=== PATIENT | female | born 1940 | race Caucasian/White ===

== ENCOUNTER → 2017-02-12 | Outpatient (CLI) | payer MEDICARE, BC ==
[~2017-02-12] MED LIST: AMLODIPINE BESYL5 MG PO; ASPIRIN81 M2 PO; BISOPROLOL-HCT1 EACH PO; CYCLOBENZAPRINE5 MG PO; DULOXETINE HCL60 MG PO; ESTRACE0.5 MG PO; HYDROCODON-ACE1 EAC5 PO; NEURONTIN PO; POTASSIUM CHLO10 ME1; PRAVASTATIN SOD40 MG PO
--- NOTE | ~2017-02-12 | CT127 ---
[facility] A Service of [facility] & [facility] RADIOLOGY TEXT RESULTS PATIENT: LORENE PAZ [facility] : [facility] UNIT #: [id number] AGE: [address]: Navin Gabriel MD SEX: F ORDER DR: [id number] [facility] [address] [place], [place] [address] [id number] O MR#: [id number] Acc #: [id number] NAME: LORENE PAZ : 1940 SEX: F STUDY DATE/TIME: 02/12/2017 14:58 UNIT: [facility] ROOM: STUDY DESCRIPTION: CT Upper Ext Lt Wo Cont Attending Physician: Navin Gabriel M.D. Referring Physician: Navin Gabriel M.D. Ordering Physician: Navin Gabriel M.D. Primary Care Physician: Mildred Cotton M.D. MEDICAL IMAGING REPORT This report is preliminary unless electronic signature is present EXAM CT left shoulder. HISTORY Left shoulder pain for 5 years. Preoperative evaluation for left shoulder surgery. History of osteoarthritis left shoulder. COMPARISON Left shoulder films 06/20/16. FINDINGS Thin section axial images performed through the left shoulder without contrast. Multiplanar reconstructed images reviewed at a workstation. This CT exam was performed with one or more of the following radiation dose reduction techniques: automatic exposure control, adjustment of mA and/or kV according to patient size, and iterative reconstruction. Examination demonstrates moderately advanced glenohumeral joint osteoarthritis with extensive full-thickness cartilage loss off the glenoid and humeral head. There is a moderate amount of subchondral cystic change and sclerosis along the humeral head and a prominent inferiorly-directed humeral head osteophyte. A small amount of subchondral cystic change noted along the glenoid. No joint effusion. There is approximately 13 degrees of glenoid retroversion. AC joint unremarkable. Mild lateral downsloping of the acromion. Rotator cuff musculature appears intact. No gross evidence of rotator cuff tear though non-arthrographic CT limited. Deltoid musculature appears normal. The visualized left thorax unremarkable. 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 STS. [facility] A Service of [facility] & [facility] RADIOLOGY TEXT RESULTS PATIENT: LORENE PAZ [facility] UNIT #: [id number] AGE: [address]: Navin Gabriel MD SEX: F ORDER DR: Dictated by... Aubrie Faye M.D. THIS IS AN ELECTRONICALLY VERIFIED REPORT Aubrie Faye M.D. at 02/14/2017 5:11 PM Ramos TD: 02/12/2017 22:53 JOB #: [id number] MEDICAL IMAGING REPORT Page 1 of 1 COPY
[2017-02-12 13:52] LABS: HEMATOCRIT 36.1 % (35.0-45.0); HEMOGLOBIN 11.7 gm/dL (12.0-16.0); MEAN CELL VOLUME 83.1 FL (83-96); MEAN CORPUSCULAR HEMOGLOBIN 26.9 PG (28-34); MEAN CORPUSCULAR HGB CONC 32.4 g/dL (30-36); MEAN PLATELET VOLUME 8.1 FL (6.5-11.5); RED BLOOD COUNT 4.34 X10e (3.90-5.30); RED CELL DISTRIBUTION WIDTH 14.1 % (11.0-15.5); WHITE BLOOD COUNT 5.1 X10e3 (4.0-10.5)
[2017-02-12 14:46] LABS: URINE APPEARANCE CLEAR; URINE BILIRUBIN NEG (NEG); URINE BLOOD NEG (NEG); URINE COLOR YELLOW; URINE GLUCOSE NEG (NEG); URINE KETONE NEG (NEG); URINE LEUKOCYTE ESTERASE NEG (NEG); URINE NITRATE NEG (NEG); URINE PROTEIN NEG (NEG); URINE SPECIFIC GRAVITY 1.007 (1.003-1.035); URINE UROBILINOGEN 0.2 MG/DL (NEG)
[2017-02-12 14:49] LABS: CALCIUM SERUM 9.5 mg/dL (8.4-10.2); CREATININE SERUM 0.6 mg/dL (0.6-1.4); CULTURE INDICATED? NO; GLOM FILT RATE Estimated 87.9 mL/min (>60); POTASSIUM 4.1 mmol/L (3.5-5.1); URINE SOURCE CLEAN CATCH
== END | disposition home or self-care (01) ==
LOC: CCAT 12:53
PROVIDERS: Orthopaedic Surgery
DX: Z01.818 Encounter for other preprocedural examination (principal); M19.012 Primary osteoarthritis, left shoulder
CPT/HCPCS: 36415; 73200; 80048; 81003; 85027; 87070